=== PATIENT | female | born 1980 | race Caucasian/White ===

== ENCOUNTER 2024-07-30 06:02 | Emergency (ER) | payer BC ==
[2024-07-30] MEDS ORDERED: HYDROMORPHONE HCL 1 MG/ML INJ ONE (06:41)
[2024-07-30] MEDS ORDERED: ONDANSETRON 4 MG/2 ML VIAL ONE (06:41)
[2024-07-30] MEDS ORDERED: NA CHLORIDE 0.9% 2,000 ML ONE (06:49)
[2024-07-30 06:56] LABS: Absolute Eosinophils 0.1 K/uL (0-0.5); Absolute Lymphocytes (CBC) 1.6 K/uL (0.7-4.9); Absolute Monocytes 0.5 K/uL (0.1-1.3); Absolute Neutrophil 4.9 K/uL (1.8-8.0); Basophils % 0.2 % (0-1.3); Eosinophils % 0.8 % (0-4.4); Hematocrit 40.4 % (36.0-45.0); MCH 31.3 pg (27.0-35.0); MCHC 34.7 g/dL (32.0-36.0); MCV 90.2 fL (80-100); MPV 6.7 fL (7.6-11.3); Monocytes % 6.4 % (3.3-12.3); Neutrophils % 69.6 % (41.7-73.7); Nucleated Red Blood Cells % 0.1 % (0-0); Platelets 374 thou/uL (152-406); RBC Red Blood Cell Count 4.48 M/uL (3.86-4.86); Red Cell Distribution Width 13.1 % (12.1-15.2)
[2024-07-30 07:10] LABS: PT Prothrombin Time 12.6 SECONDS (10-13.0); PTT, Activated Partial Thromb 30.5 SECONDS (27.2-37.4); Protime INR 1.11
[2024-07-30 07:14] LABS: Albumin 4.2 g/dL (3.4-5.0); Anion Gap 8.4 mEq/L (5.0-15.0); Bilirubin Total 0.6 mg/dL (0.2-1.0); Globulin 4.2 g/dL (2.3-3.5); Potassium 3.4 mEq/L (3.5-5.1); Protein, Total 8.4 g/dL (6.4-8.2)
[2024-07-30] MEDS ORDERED: KETOROLAC 30 MG/ML INJ ONE (08:00)
--- NOTE | 2024-07-30 08:35 | RAD REPORT ---
EXAM: CT Soft Tissue Neck W/Contr INDICATION: [facility] no neck/face pain/swelling left mandible;Facial pain Bed Name: 7 TECHNIQUE: Helical CT examination of the neck with IV contrast. Sagittal and coronal reformations wer e generated. This exam was performed according to our departmental dose-optimization program, which includes automated exposure control, adjustment of the mA and/or kV according to patient size and/or use of iterative reconstruction technique. COMPARISON: None. FINDINGS: Soft tissue swelling along the left lower jaw overlying the left mandibular body. Small subperiosteal collection along the buccal cortex of the mandibular body most caudally, measuring 5 x 8 mm in CC and AP dimensions, and 4 mm in thickness, best appreciated on coronal image 26. This may relate to reza btle periapical lucency along the root of the posterior most left mandibular erupted molar, which shows adjacent osseous sclerosis, suggesting ongoing infection. Subtraction cavity of the right maxillary first premolar. Mucosal spaces: Nasopharynx, oropharynx, oral cavity, larynx and hypopharynx are normal. No suspiciou s masses. Epiglottis is normal in configuration. True vocal cords cords are normally situated. Piriform sinuses are well-aerated. Lymph Nodes: No pathologic appearing cervical lymph nodes. Salivary Glands: Unremarkable. Thyroid Gland: Normal Included Intracranial Structures: Normal Included Orbits: Normal Paranasal Sinuses: Predominantly clear Tympanomastoid Cavities: Normal Vascular Structures: Normal Osseous Structures: No acute osseous abnormality. Mild degenerative changes at C5-6 contributing to mild to moderate degrees of neural foraminal narrowing bilaterally. Included Lung Apices: Interlobular septal thickening with geographic mild groundglass opacities in th e included upper lungs, may relate to sequelae of under aeration or airway inflammatory changes. IMPRESSION: Periapical lucency with no discrete periapical collection along the root of the posterior most left m andibular erupted molar, with overlying subperiosteal collection/abscess along the buccal cortex of the body of the mandible measuring 8 mm in greatest AP dimension. Other incidental findings as above.
--- NOTE | 2024-07-30 08:57 | ER ---
Nurse's Notes [facility] Name: Ladonna Asif Age: 44 yrs Sex: Female : 1980 Arrival Date: 07/30/2024 Time: 06:02 Bed 7 Private MD: Diagnosis: dental abscess Presentation: 07/30 06:19 Chief complaint: Patient states: right sided tooth pulled 2 weeks ago. new onset pain lg3 and swelling to left jaw/;face X1 week and worsening. no relief with Tramadol, ibuprofen or Robaxin. Coronavirus screen: Client denies travel out of the [place] in the last 14 days. At this time, the client does not indicate any symptoms associated with coronavirus-19. Ebola Screen: No symptoms or risks identified at this time. Initial Sepsis Screen: Does the patient meet any 2 criteria? No. Patient's initial sepsis screen is negative. Does the patient have a suspected source of infection? No. Patient's initial sepsis screen is negative. Risk Assessment: Do you want to hurt yourself or someone else? Patient reports no desire to harm self or others. Onset of symptoms is unknown. 06:19 Method Of Arrival: Ambulatory lg3 06:19 Acuity: KRISTIN 3 lg3 Triage Assessment: 06:22 General: Appears in no apparent distress. uncomfortable, Behavior is calm, cooperative. lg3 Pain: Complains of pain in left cheek and left jaw Pain currently is 10 out of 10 on a pain scale. EENT: No deficits noted. Throat is clear. Neuro: No deficits noted. Dunn Agitation-Sedation Scale (RASS): 0 - Alert and Calm Level of Consciousness is awake, alert, obeys commands, Oriented to person, place, time, situation. Cardiovascular: No deficits noted. Denies chest pain, shortness of breath, Capillary refill < 3 seconds Clubbing of nail beds is absent JVD is absent Patient's skin is warm and dry. Respiratory: No deficits noted. Airway is patent Respiratory effort is even, unlabored, Respiratory pattern is regular, symmetrical. GI: No deficits noted. No signs and/or symptoms were reported involving the gastrointestinal system. : No signs and/or symptoms were reported regarding the genitourinary system. Derm: No deficits noted. Skin is intact, is healthy with good turgor, Skin is dry, Skin is normal, Skin temperature is warm. Musculoskeletal: Circulation, motion, and sensation intact. Range of motion: intact in all extremities, Swelling present in left cheek and left jaw. 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 - Infectious Disease History:: Denies. - Social history:: Smoking status: Reported history of juuling and/or vaping. Patient uses street drugs, marijuana. Screenin:25 [facility] ED Fall Risk Assessment (Adult) History of falling in the last 3 months, lg3 including since admission No falls in past 3 months (0 pts) Confusion or Disorientation No (0 pts) Intoxicated or Sedated No (0 pts) Impaired Gait Yes (1 pt) Mobility Assist Device Used Yes (1 pt) Altered Elimination No (0 pt) Score/Fall Risk Level 0 - 2 = Low Risk Oriented to surroundings, Maintained a safe environment, Educated pt \T\ family on fall prevention, incl call for assistance when getting out of bed, Assessed \T\ reinforced patient's understanding of fall precautions. Abuse screen: Denies threats or abuse. Denies injuries from another. Nutritional screening: No deficits noted. Tuberculosis screening: No symptoms or risk factors identified. Assessment: 06:25 General: see triage assessment. lg3 07:25 General: Appears in no apparent distress. Behavior is calm, cooperative, appropriate ap3 for age. Pain: Complains of pain in left jaw Pain currently is 7 out of 10 on a pain scale. Neuro: Level of Consciousness is awake, alert, obeys commands, Oriented to person, place, time, situation, Appropriate for age. Cardiovascular: Patient's skin is warm and dry. Respiratory: Airway is patent Respiratory effort is even, unlabored, Respiratory pattern is regular, symmetrical. Vital Signs: 06:19 BP 163 / 93; Pulse 131; Resp 15 S; Temp 97.6(TE); Pulse Ox 100% on R/A; Weight 92.99 kg lg3 (R); Height 5 ft. 7 in. ; 07:35 BP 116 / 80; Pulse 67; Pulse Ox 97% ; ap3 08:45 BP 118 / 77; Pulse 67; Resp 18; Pulse Ox 97% on R/A; ld1 06:19 Body Mass Index 32.11 (92.99 kg, 170.18 cm) lg3 ED Course: 06:07 Patient arrived in ED. jj6 06:09 Dorothy Fowler MD is Attending Physician. sp3 06:22 Triage completed. lg3 06:22 Arm band placed on right wrist. lg3 06:25 Patient has correct armband on for positive identification. Placed in gown. Bed in low lg3 position. Call light in reach. Side rails up X 1. Client placed on continuous cardiac and pulse oximetry monitoring. NIBP monitoring applied. special procedure technologist on. Door closed. Noise minimized. Warm blanket given. Pillow given. Family accompanied patient. 06:25 Oxygen administration via nasal cannula. lg3 06:33 DIONISIO REDDY RN is Primary Nurse. dd2 06:40 EKG done, by ED staff, reviewed by Dorothy Fowler MD. oe 06:40 No provider procedures requiring assistance completed. Initial lab(s) drawn, by me, dd2 sent to lab. First set of blood cultures drawn by me. 06:57 Inserted saline lock: 20 gauge in right antecubital area, using aseptic technique. dd2 Blood collected. Flushed with 10 mL NS. 07:12 Attending Physician role handed off by Dorothy Fowler MD jr11 07:12 Costa Pickering MD is Attending Physician. jr11 07:21 Primary Nurse role handed off by DIONISIO REDDY RN eb 07:25 Arleth Leal, ANALY is Primary Nurse. ap3 07:34 CT Soft Tissue Neck W/contr In Process Unspecified. EDMS 09:20 Provided Education on: discharge instructions. ap3 09:20 IV discontinued, intact, bleeding controlled, No redness/swelling at site. Pressure ap3 dressing applied. Administered Medications: 06:47 Drug: HYDROmorphone IVP 1 mg IVP once Route: IVP; Site: right antecubital; bm8 07:26 Follow up: Response: No adverse reaction; Pain is decreased ap3 06:47 Drug: Ondansetron IVP 4 mg IVP once; over 2 minutes Route: IVP; Site: right antecubital;bm8 07:27 Follow up: Response: No adverse reaction ap3 06:53 Drug: NS 0.9% IV (30 ml/kg) 30 ml/kg IV at bolus once; Sepsis Protocol; to be given as bm8 a bolus over 90 minutes Route: IV; Rate: bolus; Site: right antecubital; 09:20 Follow up: IV Status: Completed infusion ap3 08:10 Drug: Ketorolac IVP 15 mg IVP once Route: IVP; Site: right antecubital; ld1 09:04 Follow up: Response: No adverse reaction ap3 09:10 Drug: Clindamycin PO 300 mg PO once Route: PO; ap3 09:20 Follow up: Response: No adverse reaction ap3 Medication: 09:20 VIS not applicable for this client. ap3 Outcome: 08:57 Discharge ordered by . jr11 09:20 Discharged to home ambulatory, with family, ap3 09:20 Condition: good 09:20 Discharge instructions given to patient, family, Instructed on discharge instructions, follow up and referral plans. medication usage, Demonstrated understanding of instructions, follow-up care, medications, Prescriptions given X 3, 09:20 Patient left the ED. ap3 Signatures: Dispatcher [employer] EDMS James Acosta Amanda RN RN ap3 Dalila Lugo Lacie RN RN lg3 Brittanie Greene RN RN ld1 Dorothy Fowler MD MD sp3 Susana Ha Jose, MD MD jr11 Juarez Ding RN RN bm8 DIONISIO REDDY RN RN dd2
--- NOTE | 2024-07-30 08:57 | EDPHYS ---
Physician Documentation [facility] Name: Ladonna Asif Age: 44 yrs Sex: Female : 1980 Arrival Date: 07/30/2024 Time: 06:02 Bed 7 Private MD: ED Physician Costa Pickering HPI: 07/30 06:43 This 44 yrs old Female presents to ER via Ambulatory with complaints of Facial Swelling.sp3 06:43 44-year-old female with history of generalized tremors and unknown neurological sp3 diagnosis currently improving, recent diagnosis of trigeminal neuralgia and recent dental procedure on the right side of her mouth in the mandible now presents to the ED with chief complaint left-sided mandibular swelling, ongoing neck pain and stiffness, and TMJ pain. Patient was diagnosed by her dentist with trigeminal neuralgia and placed on tramadol and PCP added Robaxin. Patient states that her left side of her jaw is now swollen and is worse when she moves. She denies any fever or dental pain on the left side. No difficulty swallowing. ROS otherwise negative.. 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 - Infectious Disease History:: Denies. - Social history:: Smoking status: Reported history of juuling and/or vaping. Patient uses street drugs, marijuana. ROS: 06:45 Constitutional: Negative for fever, chills, and weight loss, Eyes: Negative for injury, sp3 pain, redness, and discharge, ENT: Negative for injury, pain, and discharge, Cardiovascular: Negative for chest pain, palpitations, and edema, Respiratory: Negative for shortness of breath, cough, wheezing, and pleuritic chest pain, Abdomen/GI: Negative for abdominal pain, nausea, vomiting, diarrhea, and constipation, Back: Negative for injury and pain, MS/Extremity: Negative for injury and deformity, Skin: Negative for injury, rash, and discoloration, Neuro: Negative for headache, weakness, numbness, tingling, and seizure, Psych: Negative for depression, anxiety, suicide ideation, homicidal ideation, and hallucinations, Allergy/Immunology: Negative for hives, rash, and allergies, Endocrine: Negative for neck swelling, polydipsia, polyuria, polyphagia, and marked weight changes, 06:45 All other systems are negative, Exam: 06:46 Constitutional: This is a well developed, well nourished patient who is awake, alert, sp3 and in no acute distress. Eyes: Pupils equal round and reactive to light, extra-ocular motions intact. Lids and lashes normal. Conjunctiva and sclera are non-icteric and not injected. Cornea within normal limits. Periorbital areas with no swelling, redness, or edema. ENT: Nares patent. No nasal discharge, no septal abnormalities noted. External auditory canals are clear. Oropharynx with no redness, swelling, or masses, exudates, or evidence of obstruction, uvula midline. Mucous membranes moist. Chest/axilla: Normal chest wall appearance and motion. Nontender with no deformity. No lesions are appreciated. Respiratory: Lungs have equal breath sounds bilaterally, clear to auscultation and percussion. No rales, rhonchi or wheezes noted. No increased work of breathing, no retractions or nasal flaring. Abdomen/GI: Soft, non-tender, with normal bowel sounds. No distension or tympany. No guarding or rebound. No evidence of tenderness throughout. Back: No spinal tenderness. No costovertebral tenderness. Full range of motion. Skin: Warm, dry with normal turgor. Normal color with no rashes, no lesions, and no evidence of cellulitis. MS/ Extremity: Pulses equal, no cyanosis. Neurovascular intact. Full, normal range of motion. Neuro: Awake and alert, GCS 15, oriented to person, place, time, and situation. Cranial nerves II-XII grossly intact. Motor strength 5/5 in all extremities. Sensory grossly intact. Cerebellar exam normal. Normal gait. Psych: Awake, alert, with orientation to person, place and time. Behavior, mood, and affect are within normal limits. 06:46 Head/face: Swelling noted along the mandibular jawline on the left side. No lymphadenopathy noted. Patient also tender at the TMJ joint. Mildly tender along parotid gland. ENT exam negative. No peritonsillar swelling, uvular shift or other abnormality. Heart rate noted at 131 tachycardia. Afebrile.. 06:46 Cardiovascular: Rate: tachycardic, 06:59 ECG was reviewed by the Attending Physician. EKG demonstrates normal sinus rhythm at 77 sp3 bpm with normal intervals, normal QRS, normal axis, normal ST/T-segments without evidence of acute ischemia. Vital Signs: 06:19 BP 163 / 93; Pulse 131; Resp 15 S; Temp 97.6(TE); Pulse Ox 100% on R/A; Weight 92.99 kg lg3 (R); Height 5 ft. 7 in. ; 07:35 BP 116 / 80; Pulse 67; Pulse Ox 97% ; ap3 08:45 BP 118 / 77; Pulse 67; Resp 18; Pulse Ox 97% on R/A; ld1 06:19 Body Mass Index 32.11 (92.99 kg, 170.18 cm) lg3 MDM: 06:09 Medical Screening Exam initiated sp3 06:48 Data reviewed: vital signs, nurses notes, lab test result(s), radiologic studies. ED sp3 course: 44-year-old female with PMH above now with left-sided facial swelling and tachycardia as well as neck and facial pain. Differential diagnosis includes dental infection, parotid gland sialolithiasis versus infection, TMJ pain, trigeminal neuralgia, SCM muscle strain, lymphadenopathy of the neck, among others. Workup will include general labs and CT scan soft tissue anterior neck which will extend into the face. IV fluids also ordered as well as cultures. Patient will be signed out to daytime physician for reevaluation and final disposition.. 08:56 Differential diagnosis: CT to my read, small fluid collection. Spoke to the patient, jrAnayeli she would like to stay local rather than transfer, consider transfer however she wants to go outpatient here. Will prescribe anabiotic warm compresses, strict return precautions. 07/30 06:33 Order name: Blood Culture Adult (2) sp3 07/30 06:33 Order name: CBC with Diff; Complete Time: 08:05 sp3 07/30 06:33 Order name: CMP; Complete Time: 08:05 sp3 07/30 06:33 Order name: Lactate w/ 2H reflex if indic.; Complete Time: 08:05 sp3 07/30 06:33 Order name: Protime (+inr); Complete Time: 08:05 sp3 07/30 06:33 Order name: Ptt, Activated; Complete Time: 08:05 sp3 07/30 06:33 Order name: CT Soft Tissue Neck W/contr; Complete Time: 08:44 sp3 07/30 06:33 Order name: Cardiac monitoring; Complete Time: 06:47 sp3 07/30 06:33 Order name: EKG - Nurse/Tech; Complete Time: 06:54 sp3 07/30 06:33 Order name: IV Saline Lock - Large Bore; Complete Time: 06:47 sp3 07/30 06:33 Order name: Labs collected and sent; Complete Time: 06:54 sp3 07/30 06:33 Order name: O2 Per Protocol; Complete Time: 06:54 sp3 07/30 06:33 Order name: O2 Sat Monitoring; Complete Time: 06:54 sp3 07/30 06:33 Order name: Vital Signs; Complete Time: 06:54 sp3 07/30 06:34 Order name: NPO; Complete Time: 06:47 sp3 Administered Medications: 06:47 Drug: HYDROmorphone IVP 1 mg IVP once Route: IVP; Site: right antecubital; bm8 07:26 Follow up: Response: No adverse reaction; Pain is decreased ap3 06:47 Drug: Ondansetron IVP 4 mg IVP once; over 2 minutes Route: IVP; Site: right antecubital;bm8 07:27 Follow up: Response: No adverse reaction ap3 06:53 Drug: NS 0.9% IV (30 ml/kg) 30 ml/kg IV at bolus once; Sepsis Protocol; to be given as bm8 a bolus over 90 minutes Route: IV; Rate: bolus; Site: right antecubital; 09:20 Follow up: IV Status: Completed infusion ap3 08:10 Drug: Ketorolac IVP 15 mg IVP once Route: IVP; Site: right antecubital; ld1 09:04 Follow up: Response: No adverse reaction ap3 09:10 Drug: Clindamycin PO 300 mg PO once Route: PO; ap3 09:20 Follow up: Response: No adverse reaction ap3 Disposition Summary: 07/30/24 08:57 Discharge Ordered Notes: Please call [facility] today Location: Home jr11 Condition: Stable jr11 Diagnosis - dental abscess jr11 Discharge Instructions: - Discharge Summary Sheet jr11 - Dental Abscess jr11 Forms: - Medication Reconciliation Form jr11 - Antibiotic Education jr11 - Prescription Opioid Use jr11 - Patient Portal Instructions jr11 - Leadership Thank You Letter jr11 Prescriptions: - Clindamycin HCl 150 mg Oral capsule - take 3 capsule ORAL route every 8 hours for 10 days; 90 capsule; Refills: 0, jr11 Product Selection Permitted - Ibuprofen 600 mg Oral Tablet - take 1 tablet ORAL route every 6 hours As needed take with food; 30 tablet; jr11 Refills: 0, Product Selection Permitted - Tylenol-Codeine #3 300mg-30mg Oral tablet - take 1 tablet ORAL route every 4 hours As needed; 16 tablet; Refills: 0, jr11 Product Selection Permitted Signatures: Dispatcher [employer] EDMS Arleth Leal, RN RN ap3 Hortensia Stanton, RN RN lg3 Brittanie Greene RN RN ld1 Dorothy Fowler MD MD sp3 Costa Pickering MD MD jr11 Juarez Ding RN RN bm8 Corrections: (The following items were deleted from the chart) 06:34 06:34 BLOOD CULTURE*+BA.LAB.BRZ ordered. EDMS EDMS 06:34 06:34 CBC+H.LAB.BRZ ordered. EDMS EDMS 06:34 06:34 COMPREHENSIVE METABOLIC PANEL+C.LAB.BRZ ordered. EDMS EDMS 06:34 06:34 LACTATE+C.LAB.BRZ ordered. EDMS EDMS 06:34 06:34 PROTIME (+INR)+COAG.LAB.BRZ ordered. EDMS EDMS 06:34 06:34 PTT, ACTIVATED+COAG.LAB.BRZ ordered. EDMS EDMS 06:34 06:34 Soft Tissue Neck W/Contr+CT.RAD.BRZ ordered. EDMS EDMS
[2024-07-30 09:40] VITALS: TEMP 97.6
[2024-07-30 09:45] VITALS: O2SAT 97
[2024-07-30 09:49] VITALS: BP 118/77
--- NOTE | 2024-08-02 10:58 | EKG ---
Test Date: 2024-07-30 Test Time: 06:55:29 [employer] Remittance Clerk: MANUELA MEASUREMENT RESULTS: Intervals: Rate: 77 IL: 136 QRSD: 80 QT: 382 QTc: 432 [place]: P: 47 IL: 136 QRS: 83 T: 48 INTERPRETIVE STATEMENTS: Normal sinus rhythm Normal ECG No previous ECG available for comparison Electronically Signed On 08-02-24 10:51:12 CDT by Zach Pinedo
== END 2024-07-30 09:20 | disposition home or self-care (01) ==
LOC: ER 06:02
DX: K04.7 Periapical abscess without sinus (principal)
CPT/HCPCS: 96365; 93005; 87040 ×2; 85025; 36415; 85610; 83605; 85730; 80053; 70491; 96375; 99285; 96366; Q9967; J1171; J2405; J7030

== ENCOUNTER 2024-07-31 16:55 | Emergency (ER) | payer BC ==
[2024-07-31] MEDS ORDERED: KETOROLAC 30 MG/ML INJ ONE (18:00)
[2024-07-31] MEDS ORDERED: NA CHLORIDE 0.9% 1,000 ML ONE (18:00)
[2024-07-31] MEDS ORDERED: AMPICILLIN/SULBACTAM 3GM/VIAL ONE (18:00)
[2024-07-31] MEDS ORDERED: NA CHLORIDE 0.9% 100 ML ONE (18:00)
[2024-07-31] MEDS ORDERED: HYDROMORPHONE HCL 1 MG/ML INJ ONE (18:00)
--- NOTE | 2024-07-31 19:04 | ER ---
Nurse's Notes [facility] Name: Ladonna Asif Age: 44 yrs Sex: Female : 1980 Arrival Date: 07/31/2024 Time: 16:55 Bed 20 Private MD: Diagnosis: Dental caries, unspecified Presentation: 07/31 17:06 Chief complaint: Patient states: left sided facial swelling onset 1 week ago. pt cm10 currently taking antibiotics but not getting better. Coronavirus screen: Client denies travel out of the [place] in the last 14 days. Ebola Screen: Patient denies travel to an Ebola-affected area in the 21 days before illness onset. Initial Sepsis Screen: Does the patient meet any 2 criteria? HR > 90 bpm. Does the patient have a suspected source of infection? No. Patient's initial sepsis screen is negative. Risk Assessment: Do you want to hurt yourself or someone else? Patient reports no desire to harm self or others. Onset of symptoms was July 31, 2024. 17:06 Method Of Arrival: Ambulatory cm10 17:06 Acuity: KRISTIN 3 cm10 Triage Assessment: 17:09 General: Appears uncomfortable, Behavior is calm, cooperative. Neuro: No deficits cm10 noted. Level of Consciousness is awake, alert, obeys commands, Oriented to person, place, time, situation, Appropriate for age. Respiratory: Airway is patent Respiratory effort is even, unlabored, Respiratory pattern is regular, symmetrical. 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 - Infectious Disease History:: Denies. - Social history:: Smoking status: unknown. Screenin:11 [facility] ED Fall Risk Assessment (Adult) History of falling in the last 3 months, kc6 including since admission No falls in past 3 months (0 pts) Confusion or Disorientation No (0 pts) Intoxicated or Sedated No (0 pts) Impaired Gait No (0 pts) Mobility Assist Device Used No (0 pt) Altered Elimination No (0 pt) Score/Fall Risk Level 0 - 2 = Low Risk Oriented to surroundings, Maintained a safe environment. Abuse screen: Denies threats or abuse. Denies injuries from another. Nutritional screening: No deficits noted. Tuberculosis screening: No symptoms or risk factors identified. Assessment: 18:11 General: Appears in no apparent distress. uncomfortable, well groomed, well developed, kc6 Behavior is cooperative, appropriate for age, crying. Pain: Complains of pain in mouth and left submandibular area Pain currently is 9 out of 10 on a pain scale. Quality of pain is described as aching, dull, throbbing. Neuro: Level of Consciousness is awake, alert, obeys commands, Oriented to person, place, time, situation, Appropriate for age. Cardiovascular: Capillary refill < 3 seconds. Respiratory: Airway is patent Trachea midline Respiratory effort is even, unlabored, Respiratory pattern is regular, symmetrical. GI: Reports intolerance of fluids, intolerance of food, Patient currently denies abdominal pain, diarrhea, nausea, vomiting. : No signs and/or symptoms were reported regarding the genitourinary system. EENT: Oral mucosa is moist. Poor dentition noted. Derm: No signs and/or symptoms reported regarding the dermatologic system. Skin is intact, is healthy with good turgor, Skin is pink, warm \T\ dry. Musculoskeletal: Circulation, motion, and sensation intact. Range of motion: intact in all extremities, Swelling present in mouth and left submandibular area. 18:42 Reassessment: Patient appears in no apparent distress at this time. No changes from kc6 previously documented assessment. Patient and/or family updated on plan of care and expected duration. Pain level reassessed. Patient is alert, oriented x 3, equal unlabored respirations, skin warm/dry/pink. Patient states feeling better. Patient states symptoms have improved. 19:18 Reassessment: Patient appears in no apparent distress at this time. Patient and/or bm8 family updated on plan of care and expected duration. Pain level reassessed. Patient is alert, oriented x 3, equal unlabored respirations, skin warm/dry/pink. Patient states feeling better. Patient states symptoms have improved. Vital Signs: 17:06 BP 159 / 103; Pulse 124; Resp 20; Temp 98.8; Pulse Ox 98% ; Weight 92.99 kg; Height 5 cm10 ft. 7 in. ; 18:10 BP 141 / 91; Pulse 79; Resp 18 S; Pulse Ox 95% on R/A; Pain 8/10; kc6 18:42 BP 129 / 89; Pulse 89; Resp 18 S; Pulse Ox 97% on R/A; Pain 4/10; kc6 19:18 BP 140 / 89; Pulse 76; Resp 18; Temp 98.8; Pulse Ox 98% ; Pain 4/10; bm8 17:06 Body Mass Index 32.11 (92.99 kg, 170.18 cm) cm10 18:10 Pain Scale: Adult kc6 18:42 Pain Scale: Adult kc6 19:18 Pain Scale: Adult bm8 Malena Coma Score: 19:18 Eye Response: spontaneous(4). Motor Response: obeys commands(6). Verbal Response: bm8 oriented(5). Total: 15. ED Course: 16:58 Patient arrived in ED. im 16:58 Yohan Loredo F[facility]-C [facility]. [facility]5 16:58 Juan Donnelly MD is Attending Physician. dr5 17:07 Triage completed. cm10 17:07 Arm band placed on left wrist. Patient placed in waiting room. cm10 17:50 Allison Jose RN is Primary Nurse. kc6 18:10 Patient has correct armband on for positive identification. Bed in low position. Call kc6 light in reach. Side rails up X 1. Adult w/ patient. Pulse ox on. NIBP on. Door closed. Noise minimized. Lights dimmed. Pillow given. Verbal reassurance given. 18:10 Inserted saline lock: 20 gauge in right antecubital area, using aseptic technique. kc6 Flushed with 10 mL NS. Patient maintains SpO2 saturation greater than 95% on room air. 18:56 Report given to ANALY Pizarro. kc6 19:18 Provided Education on: post er care. bm8 19:18 No provider procedures requiring assistance completed. IV discontinued, intact, bm8 bleeding controlled, No redness/swelling at site. Pressure dressing applied. Administered Medications: 18:09 Drug: NS 0.9% IV 1000 ml IV at 1000 ml once; to be given as a bolus over 60 minutes kc6 Route: IV; Rate: 1000 ml; Site: right antecubital; 19:21 Follow up: Response: No adverse reaction; IV Status: Completed infusion bm8 18:09 Drug: Ketorolac IVP 15 mg IVP once Route: IVP; Site: right antecubital; kc6 18:42 Follow up: Response: No adverse reaction; Pain is decreased kc6 18:10 Drug: HYDROmorphone IVP 1 mg IVP once Route: IVP; Site: right antecubital; kc6 18:42 Follow up: Response: No adverse reaction; Pain is decreased; RASS: Alert and Calm (0) kc6 18:10 Drug: Ampicillin-Sulbactam Sodium IVPB 3 grams IVPB once over 30 mins; (mix in 100 mL kc6 NS) Route: IVPB; Infused Over: 30 mins; Site: right antecubital; 18:41 Follow up: Response: No adverse reaction; IV Status: Completed infusion; IV Intake: kc6 100ml Medication: 19:18 VIS not applicable for this client. bm8 Intake: 18:41 IV: 100ml; Total: 100ml. kc6 Outcome: 19:04 Discharge ordered by . dr5 19:18 Discharged to home ambulatory, with family, bm8 19:18 Condition: stable 19:18 Discharge instructions given to patient, family, Instructed on discharge instructions, follow up and referral plans. Demonstrated understanding of instructions, follow-up care, medications, Prescriptions given X 3, 19:20 Patient left the ED. bm8 Signatures: Allison Jose RN RN kc6 Ashli Summers Clarissa RN RN cm10 Juarez Ding RN RN bm8 Yohan Loredo, INSPECTOR PLUG SEAM-C INSPECTOR PLUG SEAM-Cdr5
--- NOTE | 2024-07-31 19:04 | EDPHYS ---
Physician Documentation [facility] Name: Ladonna Asif Age: 44 yrs Sex: Female : 1980 Arrival Date: 07/31/2024 Time: 16:55 Bed 20 Private MD: ED Physician Juan Donnelly HPI: 07/31 17:22 This 44 yrs old Female presents to ER via Ambulatory with complaints of dr5 Toothache, Facial Swelling. 17:22 The patient presents with broken tooth/teeth, redness, swelling. Patient is a dr5 44-year-old female with history of tremors coming in with continued left facial pain and swelling despite taking multiple doses of clindamycin since yesterday. Patient reports that she was unable to get to her dentist and just cannot tolerate the pain. Patient received blood work as well as CT scan yesterday with first dose of clindamycin given yesterday as well. . DIRECTOR OF RESIDENTIAL SERVICES: 19:20 Verified bm8 Historical: - Allergies: 17:05 Betadine; cm10 - PMHx: 17:05 generalized tremors; cm10 - Immunization history:: Adult Immunizations up to date. - Infectious Disease History:: Denies. - Social history:: Smoking status: unknown. ROS: 17:22 Constitutional: as per hpi dr5 Exam: 17:22 Constitutional: This is a well developed, well nourished patient who is awake, alert, dr5 and in no acute distress. Head/Face: Normocephalic, atraumatic. Eyes: Pupils equal round and reactive to light, extra-ocular motions intact. Lids and lashes normal. Conjunctiva and sclera are non-icteric and not injected. Cornea within normal limits. Periorbital areas with no swelling, redness, or edema. Neck: Trachea midline, no thyromegaly or masses palpated, and no cervical lymphadenopathy. Supple, full range of motion without nuchal rigidity, or vertebral point tenderness. No Meningismus. Chest/axilla: Normal chest wall appearance and motion. Nontender with no deformity. No lesions are appreciated. Cardiovascular: Regular rate and rhythm with a normal S1 and S2. Normal PMI, no JVD. No pulse deficits. Respiratory: Lungs have equal breath sounds bilaterally, clear to auscultation. No rales, rhonchi or wheezes noted. No increased work of breathing, no retractions or nasal flaring. Back: No spinal tenderness. No costovertebral tenderness. Full range of motion. Skin: Warm, dry with normal turgor. Normal color with no rashes, no lesions, and no evidence of cellulitis. Neuro: Awake and alert, GCS 15, oriented to person, place, time, and situation. Cranial nerves II-XII grossly intact. Motor strength 5/5 in all extremities. Sensory grossly intact. Cerebellar exam normal. Normal gait. 17:22 ENT: Mouth: Patient is handling secretions without drooling. Patient speaking in full sentences. Mild left facial swelling noted with tenderness to palpation., Vital Signs: 17:06 BP 159 / 103; Pulse 124; Resp 20; Temp 98.8; Pulse Ox 98% ; Weight 92.99 kg; Height 5 cm10 ft. 7 in. ; 18:10 BP 141 / 91; Pulse 79; Resp 18 S; Pulse Ox 95% on R/A; Pain 8/10; kc6 18:42 BP 129 / 89; Pulse 89; Resp 18 S; Pulse Ox 97% on R/A; Pain 4/10; kc6 19:18 BP 140 / 89; Pulse 76; Resp 18; Temp 98.8; Pulse Ox 98% ; Pain 4/10; bm8 17:06 Body Mass Index 32.11 (92.99 kg, 170.18 cm) cm10 18:10 Pain Scale: Adult kc6 18:42 Pain Scale: Adult kc6 19:18 Pain Scale: Adult bm8 Malena Coma Score: 19:18 Eye Response: spontaneous(4). Motor Response: obeys commands(6). Verbal Response: bm8 oriented(5). Total: 15. MDM: 17:24 Medical Screening Exam initiated dr5 19:46 Differential diagnosis: dental caries, dental abscess, pericoronitis. Data reviewed: dr5 vital signs, nurses notes. I considered the following discharge prescriptions or medication management in the emergency department Medications were administered in the Emergency Department. See MAR. Care significantly affected by the following chronic conditions: Tremors. Care significantly affected by the following Social Determinants of Health: Poor access to healthcare and/or lack of insurance, Poor access to transportation, Problems related to employment. Counseling: I had a detailed discussion with the patient and/or guardian regarding the historical points, exam findings, and any diagnostic results supporting the discharge/admit diagnosis, the presence of at least one elevated blood pressure reading (>120/80) during this emergency department visit, to return to the emergency department if symptoms worsen or persist or if there are any questions or concerns that arise at home. Medication response: Dilaudid. Response to treatment: the patient's symptoms have markedly improved after treatment. Admission orders: after a detailed discussion of the patient's condition and case, the admit orders are written by me. ED course: First dose of Unasyn given in ER. Will give patient Augmentin to add to clindamycin regimen. Will have patient follow-up with dentist on Friday. Will refill medications to try and help pain. All questions answered. Patient is feeling much better.. Administered Medications: 18:09 Drug: NS 0.9% IV 1000 ml IV at 1000 ml once; to be given as a bolus over 60 minutes kc6 Route: IV; Rate: 1000 ml; Site: right antecubital; 19:21 Follow up: Response: No adverse reaction; IV Status: Completed infusion bm8 18:09 Drug: Ketorolac IVP 15 mg IVP once Route: IVP; Site: right antecubital; kc6 18:42 Follow up: Response: No adverse reaction; Pain is decreased kc6 18:10 Drug: HYDROmorphone IVP 1 mg IVP once Route: IVP; Site: right antecubital; kc6 18:42 Follow up: Response: No adverse reaction; Pain is decreased; RASS: Alert and Calm (0) kc6 18:10 Drug: Ampicillin-Sulbactam Sodium IVPB 3 grams IVPB once over 30 mins; (mix in 100 mL kc6 NS) Route: IVPB; Infused Over: 30 mins; Site: right antecubital; 18:41 Follow up: Response: No adverse reaction; IV Status: Completed infusion; IV Intake: kc6 100ml Disposition: 20:30 Co-signature as Attending Physician, Juan Donnelly MD I reviewed the patient's care rt provided by the Advanced Practice Provider and agree with the diagnosis and treatment plan. Disposition Summary: 07/31/24 19:04 Discharge Ordered Notes: Location: Home dr5 Condition: Stable dr5 Diagnosis - Dental caries, unspecified dr5 Followup: dr5 - With: Emergency Department - When: As needed - Reason: Worsening of condition Followup: dr5 - With: Private Physician - When: 1 - 2 days - Reason: Recheck today's complaints, Continuance of care, Re-evaluation by your physician Discharge Instructions: - Discharge Summary Sheet dr5 - Dental Abscess dr5 - Dental Pain dr5 - Dental Abscess, [id number] dr5 Forms: - Medication Reconciliation Form dr5 - Antibiotic Education dr5 - Prescription Opioid Use dr5 - Patient Portal Instructions dr5 - Leadership Thank You Letter dr5 Prescriptions: - Augmentin 875-125 mg Oral Tablet - take 1 tablet ORAL route every 12 hours for 10 days; 20 tablet; Refills: 0, dr5 Product Selection Permitted - Tramadol 50 mg Oral tablet - take 1 tablet ORAL route every 8 hours as needed; 20 tablet; Refills: 0, dr5 Product Selection Permitted - Tylenol-Codeine #3 300mg-30mg Oral tablet - take 1 tablet ORAL route every 4 hours As needed; 16 tablet; Refills: 0, dr5 Product Selection Permitted Signatures: Allison Jose RN RN kc6 Juan Donnelly MD MD rt Rosi Pagan RN RN cm10 Yohan Loredo, FWS FACULTY ASSISTANT-C FWS FACULTY ASSISTANT-Cdr5 Juarez Ding RN bm8
[2024-07-31 19:47] VITALS: TEMP 98.8
[2024-07-31 19:53] VITALS: BP 140/89; O2SAT 98
== END 2024-07-31 19:20 | disposition home or self-care (01) ==
LOC: ER 16:55
DX: K02.9 Dental caries, unspecified (principal)
CPT/HCPCS: 96365; 96361; 96375; 99284; J1171; J0295; J7030

== ENCOUNTER 2024-08-01 08:48 | Emergency (ER) | payer BC ==
[2024-08-01] MEDS ORDERED: ONDANSETRON 4 MG/2 ML VIAL ONE (09:05)
[2024-08-01] MEDS ORDERED: MORPHINE 4 MG/ML SYR ONE ×2 (09:05→10:05)
[2024-08-01 09:17] LABS: Absolute Eosinophils 0.1 K/uL (0-0.5); Absolute Lymphocytes (CBC) 1.3 K/uL (0.7-4.9); Absolute Monocytes 0.5 K/uL (0.1-1.3); Absolute Neutrophil 5.8 K/uL (1.8-8.0); Basophils % 0.2 % (0-1.3); Hematocrit 33.5 % (36.0-45.0); Hemoglobin 11.7 g/dL (12.0-15.0); Lymphocytes % 16.6 % (15.3-44.8); MCH 31.4 pg (27.0-35.0); MCHC 35.1 g/dL (32.0-36.0); MCV 89.5 fL (80-100); MPV 6.3 fL (7.6-11.3); Monocytes % 6.2 % (3.3-12.3); Platelets 321 thou/uL (152-406); RBC Red Blood Cell Count 3.74 M/uL (3.86-4.86); Red Cell Distribution Width 12.9 % (12.1-15.2)
[2024-08-01 09:30] LABS: Anion Gap 5.6 mEq/L (5.0-15.0); Potassium 3.6 mEq/L (3.5-5.1)
--- NOTE | 2024-08-01 10:15 | RAD REPORT ---
EXAM: CT Soft Tissue Neck W/Contr INDICATION: left mandibular swelling Bed Name: 14 TECHNIQUE: Helical CT examination of the neck with IV contrast. Sagittal and coronal reformations wer e generated. This exam was performed according to our departmental dose-optimization program, which includes automated exposure control, adjustment of the mA and/or kV according to patient size and/or use of iterative reconstruction technique. COMPARISON: None. FINDINGS: Stable swelling and overlying fat stranding along the left lower jaw, adjacent to the left mandibular body buccal cortex, with stable subperiosteal fluid collection now measuring 4 mm in thickness and 8 mm in greatest AP dimension. Periapical lucency along the root of the posterior most interrupted le ft mandibular molar again seen. Mucosal spaces: Nasopharynx, oropharynx, oral cavity, larynx and hypopharynx are normal. There is how ever new focal swelling and overlying fat stranding along the left strap muscles at the level of the thyroid cartilage. No appreciable fluid collections. No suspicious masses. Epiglottis is normal i n configuration. True vocal cords cords are normally situated. Piriform sinuses are well-aerated. Lymph Nodes: Mildly prominent lymph nodes at level 2A and level 1B on the left, stable to mildly prog ressive. Salivary Glands: Unremarkable. Thyroid Gland: Normal Included Intracranial Structures: Normal Included Orbits: Normal Paranasal Sinuses: Predominantly clear Tympanomastoid Cavities: Normal Vascular Structures: Normal Osseous Structures: No acute osseous abnormality. Included Lung Apices: Normal IMPRESSION: Stable left mandibular periodontal disease with overlying small subperiosteal fluid collection/absces s. New focal swelling overlying fat stranding along the left strap muscles at the level of the thyroid c artilage, may relate to evolving deep space infection although appreciable phlegmon or abscess formation.
[2024-08-01] MEDS ORDERED: NA CHLORIDE 0.9% 250 ML ONE (10:28)
[2024-08-01] MEDS ORDERED: FENTANYL CITR 100 MCG/2 ML ONE ×2 (10:28→11:37)
[2024-08-01] MEDS ORDERED: VANCOMYCIN 1 GM/VIAL ONE (10:28)
[2024-08-01] MEDS ORDERED: PIPERACIL/TAZO 3.375 GM VIAL IV ONE (10:29)
[2024-08-01] MEDS ORDERED: NA CHLORIDE 0.9% 100 ML ONE (10:29)
--- NOTE | 2024-08-01 10:31 | ER ---
Nurse's Notes [facility] Name: Ladonna Asif Age: 44 yrs Sex: Female : 1980 Arrival Date: 08/01/2024 Time: 08:48 Bed 14 Private MD: Diagnosis: Cellulitis of face;Cellulitis of neck;Periapical abscess without sinus Presentation: 08/01 08:53 Chief complaint: Patient states: dx dental abscess and reports increased swelling to aa5 left jaw and increased pain and headache. 08:53 Coronavirus screen: At this time, the client does not indicate any symptoms associated aa5 with coronavirus-19. Ebola Screen: Patient denies travel to an Ebola-affected area in the 21 days before illness onset. Initial Sepsis Screen: Does the patient meet any 2 criteria? HR > 90 bpm. Does the patient have a suspected source of infection?. Risk Assessment: Do you want to hurt yourself or someone else? Patient reports no desire to harm self or others. Onset of symptoms was July 2024. 08:53 Acuity: KRISTIN 3 aa5 08:53 Method Of Arrival: Ambulatory aa5 Historical: - Allergies: 09:00 Betadine; aa5 - PMHx: 09:00 generalized tremors; aa5 - Family history:: not pertinent. - Hospitalizations: : No recent hospitalization is reported. Screenin:00 [facility] ED Fall Risk Assessment (Adult) History of falling in the last 3 months, jl7 including since admission No falls in past 3 months (0 pts) Confusion or Disorientation No (0 pts) Intoxicated or Sedated No (0 pts) Impaired Gait No (0 pts) Mobility Assist Device Used No (0 pt) Altered Elimination No (0 pt) Score/Fall Risk Level 0 - 2 = Low Risk Oriented to surroundings, Maintained a safe environment. Abuse screen: Denies threats or abuse. Denies injuries from another. Nutritional screening: No deficits noted. Tuberculosis screening: No symptoms or risk factors identified. Assessment: 09:00 General: Appears in no apparent distress. uncomfortable, Behavior is calm, cooperative, jl7 appropriate for age. Pain: Complains of pain in mouth Pain currently is 10 out of 10 on a pain scale. Neuro: Level of Consciousness is awake, alert, obeys commands, Oriented to person, place, time, situation. Cardiovascular: Patient's skin is warm and dry. Respiratory: Airway is patent Respiratory effort is even, unlabored, Respiratory pattern is regular, symmetrical. EENT: swelling and redness noted to left side of face. Derm: Skin is pink, warm \T\ dry. Vital Signs: 08:53 BP 150 / 88; Pulse 93; Resp 16 S; Temp 98.4(O); Pulse Ox 95% on R/A; aa5 10:00 BP 146 / 84; Pulse 67; Resp 15; Pulse Ox 96% ; Pain 10/10; jl7 11:00 Pain 7/10; jl7 11:30 BP 152 / 83; Pulse 69; Resp 15; Pulse Ox 96% ; Pain 7/10; jl7 10:00 Pain Scale: Adult jl7 11:00 Pain Scale: Adult jl7 11:30 Pain Scale: Adult jl7 ED Course: 08:52 Patient arrived in ED. cj3 08:52 Ethan Lisa MD is Attending Physician. rn 08:53 Arm band placed on Patient placed in an exam room, on a stretcher. aa5 08:59 Debby Rodriguez, ANALY is Primary Nurse. jl7 09:00 Patient has correct armband on for positive identification. Provided Education on: use jl7 of call nevarez. 09:02 Triage completed. aa5 09:14 Basic Metabolic Panel Sent. em1 09:14 CBC with Diff Sent. em1 09:14 Initial lab(s) drawn, by me, sent to lab. Inserted saline lock: 20 gauge in right em1 antecubital area, using aseptic technique. Blood collected. Flushed with 10 mL NS. 09:45 CT Soft Tissue Neck W/contr In Process Unspecified. EDMS 10:28 initiated a transfer with Ivonne from the [facility] Transfer Center. eb 10:38 connected the OMF surgeon media relations manager for [facility] for patient transfer consultation. eb 10:41 administrative approval given by Ivonne Magdaleno/ patient has been accepted to [facility] ED/ Dr. Yandel Luke has accepted the patient in transfer/ report to be called to [phone]. 12:01 No provider procedures requiring assistance completed. Patient transferred, IV remains jl7 in place. intact, No redness/swelling at site. Administered Medications: 09:15 Drug: morphine IVP or IV 4 mg IVP once over 4 mins Route: IVP; Infused Over: 4 mins; jl7 Site: right antecubital; 10:15 Follow up: Response: No adverse reaction; Pain is unchanged, physician notified; RASS: [facility] Alert and Calm (0) 09:15 Drug: Ondansetron IVP 4 mg IVP once; over 2 minutes Route: IVP; Site: right antecubital;jl7 11:57 Follow up: Response: No adverse reaction jl7 10:23 Drug: morphine IVP or IV 4 mg IVP once over 4 mins Route: IVP; Infused Over: 4 mins; jl7 Site: right antecubital; 10:25 Follow up: Response: No adverse reaction; Pain is unchanged, physician notified jl7 10:30 Drug: Piperacillin-Tazobactam IVPB 3.375 grams IVPB once over 60 mins; (mix in NS 100 jl7 mL) Route: IVPB; Infused Over: 60 mins; Site: right antecubital; 11:30 Follow up: Response: No adverse reaction; IV Status: Completed infusion jl7 10:30 Drug: fentaNYL (PF) IVP 50 mcg IVP once Route: IVP; Site: right antecubital; jl7 11:00 Follow up: Pain 7/10 Adult; Response: No adverse reaction; Pain is decreased; RASS: [facility] Alert and Calm (0) 11:32 Drug: vancoMYCIN IVPB 1 grams IVPB once over 2 hrs Route: IVPB; Infused Over: 2 hrs; jl7 Site: right antecubital; 11:59 Follow up: IV Status: Infusion continued upon transfer jl7 11:40 Drug: fentaNYL (PF) IVP 50 mcg IVP once Route: IVP; Site: right antecubital; jl7 11:59 Follow up: Response: No adverse reaction; Pain is decreased; RASS: Alert and Calm (0) jl7 Medication: 09:00 VIS not applicable for this client. Outcome: 10:30 ER care complete, transfer ordered by MD. guajardo 12:01 Transferred by ground EMS to [facility], Transfer form completed. 12: Condition: stable 12:01 Discharge instructions given to patient, Instructed on the need for transfer, Demonstrated understanding of instructions, 12:01 Patient left the ED. Signatures: Dispatcher [employer] EDEthan Hernandez MD MD rn Martinez, Sourav em1 Violet Fountain, RN RN aa5 Debby Rodriguez RN RN jl7 Dalila Lugo Celeste 3
--- NOTE | 2024-08-01 10:31 | EDPHYS ---
Physician Documentation [facility] Name: Ladonna Asif Age: 44 yrs Sex: Female : 1980 Arrival Date: 08/01/2024 Time: 08:48 Bed 14 Private MD: ED Physician Ethan Lisa HPI: 08/01 09:42 This 44 yrs old Female presents to ER via Ambulatory with complaints of Toothache, rn Facial Swelling, Headache. 09:42 The patient presents with pain, swelling. Onset: The symptoms/episode began/occurred 1 rn week(s) ago. Modifying factors: The symptoms are alleviated by nothing, the symptoms are aggravated by nothing. The patient has experienced similar episodes in the past. Patient reports 1 week of left jaw pain and swelling, getting worse despite antibiotics. Seen recently with imaging and patient states is worse. No trouble swallowing or breathing.. Historical: - Allergies: 09:00 Betadine; aa5 - PMHx: 09:00 generalized tremors; aa5 - Family history:: not pertinent. - Hospitalizations: : No recent hospitalization is reported. ROS: 09:42 Constitutional: Negative for fever, chills, and weight loss, ENT: Positive for left jaw rn pain and swelling Neck: Pain from jaw radiates to left neck Respiratory: Negative for shortness of breath, cough, wheezing, and pleuritic chest pain, Neuro: Negative for headache, weakness, numbness, tingling, and seizure, Exam: 09:42 Constitutional: This is a well developed, well nourished patient who is awake, alert, rn and in no acute distress. ENT: No intraoral abscess or infection noted. Swelling and tenderness noted to left mandibular body. No stridor Neck: Mild tenderness left neck without crepitus or mass Respiratory: No increased work of breathing, no retractions or nasal flaring. Vital Signs: 08:53 BP 150 / 88; Pulse 93; Resp 16 S; Temp 98.4(O); Pulse Ox 95% on R/A; aa5 10:00 BP 146 / 84; Pulse 67; Resp 15; Pulse Ox 96% ; Pain 10/10; jl7 11:00 Pain 7/10; jl7 11:30 BP 152 / 83; Pulse 69; Resp 15; Pulse Ox 96% ; Pain 7/10; jl7 10:00 Pain Scale: Adult jl7 11:00 Pain Scale: Adult jl7 11:30 Pain Scale: Adult jl7 MDM: 08:52 Medical Screening Exam initiated rn 10:28 Differential diagnosis: dental caries, dental abscess, Failed outpatient treatment, rn deep space infection. Data reviewed: vital signs, nurses notes, lab test result(s), radiologic studies, CT scan, and as a result, I will discharge patient. Counseling: I had a detailed discussion with the patient and/or guardian regarding the historical points, exam findings, and any diagnostic results supporting the discharge/admit diagnosis, lab results, radiology results, the need for further work-up and treatment in the hospital, the need to transfer to another facility. Response to treatment: the patient's symptoms have mildly improved after treatment. ED course: CT shows persistence dental abscess/fluid collection with cellulitis and extension into the neck concerning for early deep space infection. Patient has been on oral clindamycin for 2 days without improvement and actually worsening. Decision made to transfer patient for OMFS, waiting for callback from [place].. 08/01 09:00 Order name: CBC with Diff; Complete Time: 09:33 rn 08/01 09:00 Order name: Basic Metabolic Panel; Complete Time: 09:33 rn 08/01 09:00 Order name: CT Soft Tissue Neck W/contr; Complete Time: 10:23 rn 08/01 09:00 Order name: IV Start; Complete Time: 09:14 rn Administered Medications: 09:15 Drug: morphine IVP or IV 4 mg IVP once over 4 mins Route: IVP; Infused Over: 4 mins; jl7 Site: right antecubital; 10:15 Follow up: Response: No adverse reaction; Pain is unchanged, physician notified; RASS: [facility] Alert and Calm (0) 09:15 Drug: Ondansetron IVP 4 mg IVP once; over 2 minutes Route: IVP; Site: right antecubital;jl7 11:57 Follow up: Response: No adverse reaction jl7 10:23 Drug: morphine IVP or IV 4 mg IVP once over 4 mins Route: IVP; Infused Over: 4 mins; jl7 Site: right antecubital; 10:25 Follow up: Response: No adverse reaction; Pain is unchanged, physician notified jl 10:30 Drug: Piperacillin-Tazobactam IVPB 3.375 grams IVPB once over 60 mins; (mix in NS 100 jl7 mL) Route: IVPB; Infused Over: 60 mins; Site: right antecubital; 11:30 Follow up: Response: No adverse reaction; IV Status: Completed infusion jl7 10:30 Drug: fentaNYL (PF) IVP 50 mcg IVP once Route: IVP; Site: right antecubital; jl7 11:00 Follow up: Pain 10/28 Adult; Response: No adverse reaction; Pain is decreased; RASS: jl7 Alert and Calm (0) 11:32 Drug: vancoMYCIN IVPB 1 grams IVPB once over 2 hrs Route: IVPB; Infused Over: 2 hrs; jl7 Site: right antecubital; 11:59 Follow up: IV Status: Infusion continued upon transfer jl7 11:40 Drug: fentaNYL (PF) IVP 50 mcg IVP once Route: IVP; Site: right antecubital; jl7 11:59 Follow up: Response: No adverse reaction; Pain is decreased; RASS: Alert and Calm (0) jl7 Disposition Summary: 08/01/24 10:30 Transfer Ordered Notes: Transfer Location: [facility] rn Reason: Higher level of care rn Condition: Stable rn Problem: new rn Symptoms: have worsened rn Accepting Physician: Dr.J Luke(08/01/24 12:01) jl7 Diagnosis - Cellulitis of face rn - Cellulitis of neck rn - Periapical abscess without sinus rn Forms: - Medication Reconciliation Form rn - SBAR form rn Signatures: Dispatcher [employer] EDEthan Hernandez MD MD rn Calderon, Audri RN RN [email or web address] Debby Rodriguez RN RN jl7 Dalila Lugo Corrections: (The following items were deleted from the chart) 10:46 10:30 Dr. bennett prince 12:01 10:46 Dr.J Lkue eb jl7
[2024-08-01 12:33] VITALS: BP 152/83; TEMP 98.4; O2SAT 96
== END 2024-08-01 12:01 | disposition short-term general hospital (02) ==
LOC: ER 08:48
DX: K04.7 Periapical abscess without sinus (principal); L03.211 Cellulitis of face; L03.221 Cellulitis of neck
CPT/HCPCS: 96365; 96367; 85025; 80048; 36415; 70491; 96375; 99285; Q9967; J2543; J3010 ×2; J3370; J2405; J7050

== ENCOUNTER 2024-08-09 10:16 | Inpatient (IN) | payer BC ==
[2024-08-09] MEDS ORDERED: KETOROLAC 30 MG/ML INJ ONE (10:39)
[2024-08-09] MEDS ORDERED: MORPHINE 4 MG/ML SYR ONE (10:39)
[2024-08-09] MEDS ORDERED: ONDANSETRON 4 MG/2 ML VIAL ONE ×2 (10:39→12:07)
[2024-08-09] MEDS ORDERED: AMPICILLIN/SULBACT 1.5GM VIAL ONE (10:39)
[2024-08-09] MEDS ORDERED: NA CHLORIDE 0.9% 100 ML ONE ×2 (10:40→16:20)
[2024-08-09] MEDS ORDERED: NA CHLORIDE 0.9% 1,000 ML ONE (10:40)
[2024-08-09 10:50] LABS: Absolute Lymphocytes (CBC) 1.5 K/uL (0.7-4.9); Absolute Monocytes 0.6 K/uL (0.1-1.3); Basophils % 0.4 % (0-1.3); Eosinophils % 0.3 % (0-4.4); Hematocrit 38.9 % (36.0-45.0); Hemoglobin 13.8 g/dL (12.0-15.0); Lymphocytes % 16.8 % (15.3-44.8); MCH 31.1 pg (27.0-35.0); MCHC 35.6 g/dL (32.0-36.0); MCV 87.3 fL (80-100); MPV 6.5 fL (7.6-11.3); Neutrophils % 75.5 % (41.7-73.7); Platelets 453 thou/uL (152-406); RBC Red Blood Cell Count 4.45 M/uL (3.86-4.86); Red Cell Distribution Width 12.8 % (12.1-15.2)
[2024-08-09 11:20] LABS: Albumin 3.8 g/dL (3.4-5.0); Albumin/Globulin Ratio 0.9 (1.1-1.8); Anion Gap 12.8 mEq/L (5.0-15.0); Bilirubin Total 0.6 mg/dL (0.2-1.0); Globulin 4.4 g/dL (2.3-3.5); Potassium 2.8 mEq/L (3.5-5.1); Protein, Total 8.2 g/dL (6.4-8.2); Troponin High Sensitivity 42.2 pg/mL (<58.9)
--- NOTE | 2024-08-09 11:46 | RAD REPORT ---
EXAM: Soft Tissue Neck W/Contr INDICATION: infection TECHNIQUE: Helical CT examination of the neck with IV contrast. Sagittal and coronal reformations wer e generated. This exam was performed according to our departmental dose-optimization program, which includes automated exposure control, adjustment of the mA and/or kV according to patient size and/or use of iterative reconstruction technique. COMPARISON: 08/01/2024 FINDINGS: Aerodigestive Tract Structures: Nasopharynx, oropharynx, oral cavity, larynx and hypopharynx are norm al. Lymph Nodes: No pathologic appearing cervical lymph nodes. Parotid Glands: Normal Submandibular Glands: Normal Thyroid Gland: Normal Included Intracranial Structures: Normal Included Orbits: Normal Paranasal Sinuses: Predominantly clear Tympanomastoid Cavities: Normal Vascular Structures: Normal Osseous Structures: Periapical lucency associated with the left second molar on the mandibular side is again noted. Previously noted small subperiosteal fluid collection has resolved though there is still some adjacent inflammatory changes. Included Lung Apices: Normal IMPRESSION: Improvement from prior including resolution of inflammatory changes at the level of the thyroid carti lionel identified on the prior exam. In addition, inflammation associated with the left second mandibular molar is slightly decreased and the small fluid collection is no longer identified.
--- NOTE | 2024-08-09 11:51 | RAD REPORT ---
EXAM: Chest Abdomen W Con CLINICAL INDICATION: Female, 44 years CHEST PAIN TECHNIQUE: CT chest, abdomen was performed, with IV contrast, as per department protocol. Axial, sagi ttal and coronal reconstructions were obtained. One or more of the following dose reduction techniques were used: Automated exposure control, adjustment of the mA and/or kV according to the pat ient size, and/or iterative reconstruction. Unless otherwise specified, incidental findings do not require dedicated imaging follow-up. [id number]. COMPARISON: No prior exam. FINDINGS: ---THORAX--- LOWER NECK AND CHEST WALL: Visualized thyroid gland and soft tissues are normal. LUNGS AND AIRWAYS: Dependent atelectasis.No dominant or clearly suspicious nodule identified. PLEURA: No pleural effusion. No pneumothorax. MEDIASTINUM AND LYMPH NODES: No mediastinal mass or fluid collection. Normal size mediastinal, hilar, and axillary lymph nodes. THORACIC AORTA: No thoracic aortic aneurysm. PULMONARY ARTERIES: Caliber is within normal limits. HEART: Normal heart size. No coronary calcifications.No significant pericardial effusion. ---ABDOMEN/PELVIS--- UPPER GI: No significant abnormality. LIVER: No significant focal abnormality. GALLBLADDER/BILE DUCTS: Distended but no pericholecystic inflammatory changes..? PANCREAS: No mass, ductal dilation, or jero-pancreatic fluid. SPLEEN: Unremarkable. ADRENALS: No adrenal masses. KIDNEYS AND URETERS: No hydronephrosis.No suspicious renal mass.No renal calculi.No ureteral calculi. ABDOMINAL AORTA AND OTHER VESSELS: Normal caliber aorta and IVC. PERITONEUM: No abnormal free fluid. No free air. LYMPH NODES: No pathologic lymphadenopathy. ABDOMINAL WALL: Unremarkable SMALL BOWEL/COLON: Small bowel has normal course and caliber. No colonic wall thickening or pericolon ic inflammatory changes.Appendix not visualized. It may not be included in the [id number]. ---COMBINED--- MUSCULOSKELETAL: No acute or suspicious osseous abnormality. ADDITIONAL FINDINGS: None. IMPRESSION: No acute findings in the chest or abdomen.
[2024-08-09] MEDS ORDERED: FENTANYL CITR 100 MCG/2 ML ONE (12:07)
[2024-08-09] MEDS ORDERED: KCL 20 MEQ/100 mL IVPB 200 ML IV ONE (12:57)
[2024-08-09] MEDS ORDERED: METOCLOPRAMIDE 10 MG/2mL INJ ONE (12:57)
[2024-08-09] MEDS ORDERED: DIPHENHYDRAMINE 50 MG/ML VIAL ONE (12:58)
[2024-08-09] MEDS ORDERED: NA CHLORIDE 0.9% 500 ML ONE (12:59)
--- NOTE | 2024-08-09 13:07 | ER ---
Nurse's Notes [facility] Name: Ladonna Asif Age: 44 yrs Sex: Female : 1980 Arrival Date: 08/09/2024 Time: 10:16 Bed 2 Private MD: Diagnosis: Intractable nausea and vomiting;Hypokalemia Presentation: 08/09 10:19 Chief complaint: Patient states: she was evaluated recently for a tooth abscess. ap3 patient complains of continued pain in the left lower jaw, nausea, loss of appetite, and patient states "i just don't feel right". patient reports she hasn't been able to tolerate her antibiotics. Coronavirus screen: At this time, the client does not indicate any symptoms associated with coronavirus-19. Ebola Screen: No symptoms or risks identified at this time. Initial Sepsis Screen: Does the patient meet any 2 criteria? No. Patient's initial sepsis screen is negative. Does the patient have a suspected source of infection? No. Patient's initial sepsis screen is negative. Risk Assessment: Do you want to hurt yourself or someone else? Patient reports no desire to harm self or others. Onset of symptoms is unknown. 10:19 Method Of Arrival: Wheelchair ap3 10:19 Acuity: KRISTIN 3 ap3 Triage Assessment: 10:22 General: Appears ill, Behavior is calm, cooperative. Pain: Complains of pain in mouth, ap3 generalized body aches. Neuro: Level of Consciousness is awake, alert, obeys commands, Oriented to person, place, time, situation, Appropriate for age. Cardiovascular: Patient's skin is warm and dry. Respiratory: Airway is patent Respiratory effort is even, unlabored, Respiratory pattern is regular, symmetrical. GI: Reports intolerance of fluids, intolerance of food, nausea. 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 - Infectious Disease History:: Denies. - Social history:: Smoking status: Reported history of juuling and/or vaping. - Family history:: not pertinent. Screenin:23 Abuse screen: Denies threats or abuse. Nutritional screening: Has had N/V for 3 or more ap3 days. Tuberculosis screening: No symptoms or risk factors identified. 10:35 [facility] ED Fall Risk Assessment (Adult) History of falling in the last 3 months, aa5 including since admission No falls in past 3 months (0 pts) Confusion or Disorientation No (0 pts) Intoxicated or Sedated No (0 pts) Impaired Gait No (0 pts) Mobility Assist Device Used No (0 pt) Altered Elimination No (0 pt) Score/Fall Risk Level 0 - 2 = Low Risk Oriented to surroundings, Maintained a safe environment, Educated pt \\T\\ family on fall prevention, incl call for assistance when getting out of bed, Assessed \\T\\ reinforced patient's understanding of fall precautions. Assessment: 10:33 General: Appears uncomfortable, Behavior is calm, cooperative. Pain: Complains of pain aa5 in left jaw and neck Pain radiates to down to throat and to chest Pain currently is 6 out of 10 on a pain scale. Quality of pain is described as burning, Pain began 1-2 weeks ago Is continuous. Neuro: Level of Consciousness is awake, alert, obeys commands, Oriented to person, place, time, situation, Appropriate for age. Cardiovascular: Heart tones S1 S2 present Patient's skin is warm and dry. Rhythm is regular. Respiratory: Airway is patent Respiratory effort is even, unlabored, Respiratory pattern is regular, symmetrical. GI: Abdomen is round non-distended, Bowel sounds present X 4 quads. Abd is soft and non tender X 4 quads. Reports intolerance of fluids, intolerance of food, nausea, vomiting, Reports symptoms x 1 week ago, also reports decreased appetite. : No signs and/or symptoms were reported regarding the genitourinary system. EENT: Reports sore throat . Derm: Skin is pink, warm \\T\\ dry. Musculoskeletal: Range of motion: intact in all extremities. 11:30 Reassessment: Patient is alert, oriented x 3, equal unlabored respirations, skin aa5 warm/dry/pink. Patient states symptoms have not improved. MD was notified. . 12:30 Reassessment: Pt resting in bed with eyes closed, respirations are even and unlabored, aa5 appears comfortable. . 13:15 Reassessment: Patient states feeling better. Neuro: Level of Consciousness is awake, aa5 alert, obeys commands, Oriented to person, place, time, situation. Respiratory: Airway is patent Respiratory effort is even, unlabored, relaxed, Respiratory pattern is regular, symmetrical. Derm: Skin is pink, warm \\T\\ dry. 14:41 Reassessment: Patient is alert, oriented x 3, equal unlabored respirations, skin aa5 warm/dry/pink. Patient states feeling better. 15:30 Reassessment: Pt sleeping. . aa5 16:35 Reassessment: Report faxed to admitting nurse . aa5 17:10 Reassessment: Patient is alert, oriented x 3, equal unlabored respirations, skin aa5 warm/dry/pink. Vital Signs: 10:19 BP 133 / 92; Pulse 81; Resp 18; Temp 97.8(O); Pulse Ox 94% on R/A; Weight 88.45 kg; ap3 Pain 6/10; 10:59 Pulse Ox 88% on R/A; aa5 11:00 BP 130 / 90; Pulse 56; Resp 15; Pulse Ox 96% on 2 lpm NC; cm10 12:00 BP 136 / 84; Pulse 61; Resp 15; Pulse Ox 96% on 2 lpm NC; cm10 13:13 BP 124 / 90; Pulse 72; Resp 14 S; Pulse Ox 100% on 2 lpm NC; aa5 15:30 BP 120 / 70; Pulse 65; Resp 14 S; Temp 97.8(TE); Pulse Ox 100% on 2 lpm NC; aa5 16:30 BP 122 / 82; Pulse 64; Resp 16 S; Pulse Ox 100% on 2 lpm NC; aa5 10:19 Pain Scale: Adult ap3 ED Course: 10:18 Patient arrived in ED. ap3 10:18 Juan Donnelly MD is Attending Physician. rt 10:19 Violet Fountain, ANALY is Primary Nurse. aa5 10:21 Triage completed. ap3 10:24 Arm band placed on left wrist. ap3 10:24 Patient has correct armband on for positive identification. Bed in low position. Call ap3 light in reach. Side rails up X2. Door closed. Noise minimized. Warm blanket given. 10:24 Provided Education on: call light education. ap3 10:35 Initial lab(s) drawn, by me, sent to lab. Inserted saline lock: 20 gauge in right aa5 antecubital area, using aseptic technique. Blood collected. Flushed with 10 mL NS. 10:59 EKG done, by ED staff, reviewed by Juan Donnelly MD. aa5 11:03 No provider procedures requiring assistance completed. aa5 11:29 CT Soft Tissue Neck W/contr In Process Unspecified. EDMS 11:29 CT Chest Abdomen W/ Contrast In Process Unspecified. EDMS 13:06 Alberto Hess is Hospitalizing Provider. rt 13:15 Client placed on continuous cardiac and pulse oximetry monitoring. NIBP monitoring aa5 applied. hospital monitor on. Pulse ox on. NIBP on. 17:10 Patient admitted, IV remains in place. aa5 Administered Medications: 17:42 Discontinued: ns 0.9% 500 ml IV at 75 ml/hr once aa5 10:55 Drug: morphine IVP or IV 4 mg IVP once over 4 mins Route: IVP; Infused Over: 4 mins; aa5 Site: right antecubital; 11:00 Follow up: Response: No adverse reaction aa5 10:55 Drug: Ondansetron IVP 4 mg IVP once; over 2 minutes Route: IVP; Site: right antecubital;aa5 11:00 Follow up: Response: No adverse reaction aa5 10:55 Drug: Ketorolac IVP 15 mg IVP once Route: IVP; Site: right antecubital; aa5 11:00 Follow up: Response: No adverse reaction aa5 10:55 Drug: NS 0.9% IV 1000 ml IV at 1 bolus Per protocol; to be given as a bolus over 60 aa5 minutes Route: IV; Rate: 1 bolus; Site: right antecubital; 11:55 Follow up: IV Status: Completed infusion; IV Intake: 1000ml aa5 11:00 Drug: Ampicillin-Sulbactam Sodium IVPB 1.5 grams IVPB once over 30 mins; (mix in 100 mL aa5 NS) Route: IVPB; Infused Over: 30 mins; Site: right antecubital; 11:10 Follow up: Response: No adverse reaction aa5 11:30 Follow up: Response: No adverse reaction; IV Status: Completed infusion aa5 12:19 Drug: fentaNYL (PF) IVP 50 mcg IVP once Route: IVP; Site: right antecubital; cm10 12:30 Follow up: Response: No adverse reaction aa5 12:20 Drug: Ondansetron IVP 4 mg IVP once; over 2 minutes Route: IVP; Site: right antecubital;cm10 12:30 Follow up: Response: No adverse reaction aa5 13:12 Drug: metoCLOPramide IVP 10 mg IVP once; over 1 to 2 minutes Route: IVP; Site: right aa5 antecubital; 13:20 Follow up: Response: No adverse reaction aa5 13:12 Drug: diphenhydrAMINE IVP 25 mg IVP once Route: IVP; Site: right antecubital; aa5 13:20 Follow up: Response: No adverse reaction aa5 13:18 Drug: Potassium Chloride IV 40 mEq IV at calculated rate once; administer over 4 hours aa5 Route: IV; Rate: calculated rate; Site: right antecubital; 17:10 Follow up: IV Status: Infusion continued upon admission aa5 13:18 Drug: NS 0.9% IV 500 ml IV at 75 ml/hr once Route: IV; Rate: 75 ml/hr; Site: right aa5 antecubital; 17:42 Follow up: Infusion dc'd at 1630 aa5 14:41 Drug: GI Cocktail without - (Maalox PO 30 ml, Lidocaine Mucous Membrane 2 % 15 aa5 ml) PO once Route: PO; 15:30 Follow up: Response: No adverse reaction aa5 14:41 Drug: Famotidine IVP 20 mg IVP once; dilute with 10 mL 0.9% NaCl; give over 2 minutes aa5 Route: IVP; Site: right antecubital; 15:30 Follow up: Response: No adverse reaction aa5 Medication: 11:03 VIS not applicable for this client. aa5 Intake: 11:55 IV: 1000ml; Total: 1000ml. aa5 Outcome: 13:06 Decision to Hospitalize by Provider. rt 17:10 Admitted to Med/surg accompanied by tech, via wheelchair, with chart, aa5 17:10 Condition: stable 17:10 Instructed on the need for admit, Demonstrated understanding of instructions, 17:18 Patient left the ED. ap3 Signatures: Dispatcher [employer] EDViolet Hansen RN RN aa5 Arleth Leal RN RN ap3 Juan Donnelly MD MD rt Rosi Pagan RN RN cm10 Corrections: (The following items were deleted from the chart) 13:19 11:55 IV Status: Completed infusion aa5 aa5
--- NOTE | 2024-08-09 13:07 | EDPHYS ---
Physician Documentation [facility] Name: Ladonna Asif Age: 44 yrs Sex: Female : 1980 Arrival Date: 08/09/2024 Time: 10:16 Bed 2 Private MD: ED Physician Juan Donnelly HPI: 08/09 11:37 This 44 yrs old Female presents to ER via Wheelchair with complaints of Toothache. rt 11:37 Patient had a recent diagnosis of an odontogenic abscess with facial cellulitis, she rt was subsequently transferred to [facility] about 1 week ago where she states that she was discharged and not admitted. Patient states that she has not not been able to tolerate her antibiotics by mouth due to nausea, vomiting. Patient states that she feels generally unwell. States that despite not able to keep the antibiotics down, the swelling has seemed to improve. Denies other acute complaints at this time, symptoms are moderate in severity, no other aggravating or alleviating factors.. 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 - Infectious Disease History:: Denies. - Social history:: Smoking status: Reported history of juuling and/or vaping. - Family history:: not pertinent. ROS: 11:37 Constitutional: Negative for fever, chills, and weight loss, Cardiovascular: Negative rt for chest pain, palpitations, and edema, Respiratory: Negative for shortness of breath, cough, wheezing, and pleuritic chest pain, Skin: Negative for injury, rash, and discoloration, Neuro: Negative for headache, weakness, numbness, tingling, and seizure, 11:37 ENT: Positive for Dental pain, facial swelling, 11:37 Abdomen/GI: Positive for nausea and vomiting, Exam: 11:37 ENT: rt 11:37 ECG was reviewed by the Attending Physician. 11:43 ENT: rt 11:46 ENT: Minimal swelling noted at the left angle of the mandible, mild warmth to the area, rt no drainable abscesses, oropharyngeal edema. Vital Signs: 10:19 BP 133 / 92; Pulse 81; Resp 18; Temp 97.8(O); Pulse Ox 94% on R/A; Weight 88.45 kg; ap3 Pain 6/10; 10:59 Pulse Ox 88% on R/A; aa5 11:00 BP 130 / 90; Pulse 56; Resp 15; Pulse Ox 96% on 2 lpm NC; cm10 12:00 BP 136 / 84; Pulse 61; Resp 15; Pulse Ox 96% on 2 lpm NC; cm10 13:13 BP 124 / 90; Pulse 72; Resp 14 S; Pulse Ox 100% on 2 lpm NC; aa5 15:30 BP 120 / 70; Pulse 65; Resp 14 S; Temp 97.8(TE); Pulse Ox 100% on 2 lpm NC; aa5 16:30 BP 122 / 82; Pulse 64; Resp 16 S; Pulse Ox 100% on 2 lpm NC; aa5 10:19 Pain Scale: Adult ap3 MDM: 10:22 Medical Screening Exam initiated rt 13:12 Differential diagnosis: Odontogenic infection, abscess, electrolyte disturbance, rt nausea, vomiting. Data reviewed: vital signs, nurses notes, lab test result(s), EKG, radiologic studies. Consideration of Admission/Observation Patient was admitted/placed on observation. Management of patient was discussed with the following: Hospitalist: Agrees to admit. I considered the following discharge prescriptions or medication management in the emergency department Medications were administered in the Emergency Department. See MAR. Independent interpretation of the following test(s) in the Emergency Department CT Scan: My interpretation is No bowel obstruction seen on interpretation of CT scan images. Counseling: I had a detailed discussion with the patient and/or guardian regarding the historical points, exam findings, and any diagnostic results supporting the discharge/admit diagnosis, lab results, radiology results, the need for further work-up and treatment in the hospital. Response to treatment: the patient's symptoms have mildly improved after treatment. 08/09 10:30 Order name: CBC with Diff; Complete Time: 11:22 rt 08/09 10:30 Order name: CMP; Complete Time: 11:22 rt 08/09 10:30 Order name: Troponin High Sensitivity; Complete Time: 11:22 rt 08/09 12:49 Order name: Magnesium; Complete Time: 13:42 rt 08/09 13:49 Order name: Basic Metabolic Panel EDMS 08/09 13:49 Order name: Basic Metabolic Panel EDMS 08/09 13:49 Order name: Basic Metabolic Panel EDMS 08/09 13:49 Order name: Basic Metabolic Panel EDMS 08/09 13:49 Order name: Basic Metabolic Panel EDMS 08/09 13:49 Order name: CBC with Automated Diff EDMS 08/09 13:49 Order name: CBC with Automated Diff EDMS 08/09 13:49 Order name: CBC with Automated Diff EDMS 08/09 13:49 Order name: CBC with Automated Diff EDMS 08/09 13:49 Order name: CBC with Automated Diff EDMS 08/09 13:49 Order name: Magnesium EDMS 08/09 13:49 Order name: Magnesium EDMS 08/09 13:49 Order name: Magnesium EDMS 08/09 13:49 Order name: Magnesium EDMS 08/09 13:49 Order name: Magnesium EDMS 08/09 13:49 Order name: Phosphorus EDMS 08/09 13:49 Order name: Phosphorus EDMS 08/09 13:49 Order name: Phosphorus EDMS 08/09 13:49 Order name: Phosphorus EDMS 08/09 13:49 Order name: Phosphorus EDMS 08/09 13:49 Order name: T4 Free EDMS 08/09 13:49 Order name: T4 Free EDMS 08/09 13:49 Order name: Thyroid Stimulating Hormone EDMS 08/09 13:49 Order name: Thyroid Stimulating Hormone EDMS 08/09 10:31 Order name: CT Soft Tissue Neck W/contr; Complete Time: 11:52 rt 08/09 10:31 Order name: CT Chest Abdomen W/ Contrast; Complete Time: 11:52 rt 08/09 10:30 Order name: EKG; Complete Time: 10:30 rt 08/09 10:30 Order name: EKG - Nurse/Tech; Complete Time: 11:02 rt 08/09 13:20 Order name: Cardiac monitoring: VO at 1315; Complete Time: 13:20 aa5 EC:37 Rate is 58 beats/min. Rhythm is regular, Sinus bradycardia with No ectopy, U wave rt present. QRS [place] is Normal. AL interval is normal. QRS interval is normal. QT interval is normal. No Q waves. T waves are Normal. No ST changes noted. Interpreted by me. Administered Medications: 17:42 Discontinued: ns 0.9% 500 ml IV at 75 ml/hr once aa5 10:55 Drug: morphine IVP or IV 4 mg IVP once over 4 mins Route: IVP; Infused Over: 4 mins; aa5 Site: right antecubital; 11:00 Follow up: Response: No adverse reaction aa5 10:55 Drug: Ondansetron IVP 4 mg IVP once; over 2 minutes Route: IVP; Site: right antecubital;aa5 11:00 Follow up: Response: No adverse reaction aa5 10:55 Drug: Ketorolac IVP 15 mg IVP once Route: IVP; Site: right antecubital; aa5 11:00 Follow up: Response: No adverse reaction aa5 10:55 Drug: NS 0.9% IV 1000 ml IV at 1 bolus Per protocol; to be given as a bolus over 60 aa5 minutes Route: IV; Rate: 1 bolus; Site: right antecubital; 11:55 Follow up: IV Status: Completed infusion; IV Intake: 1000ml aa5 11:00 Drug: Ampicillin-Sulbactam Sodium IVPB 1.5 grams IVPB once over 30 mins; (mix in 100 mL aa5 NS) Route: IVPB; Infused Over: 30 mins; Site: right antecubital; 11:10 Follow up: Response: No adverse reaction aa5 11:30 Follow up: Response: No adverse reaction; IV Status: Completed infusion aa5 12:19 Drug: fentaNYL (PF) IVP 50 mcg IVP once Route: IVP; Site: right antecubital; cm10 12:30 Follow up: Response: No adverse reaction aa5 12:20 Drug: Ondansetron IVP 4 mg IVP once; over 2 minutes Route: IVP; Site: right antecubital;cm10 12:30 Follow up: Response: No adverse reaction aa5 13:12 Drug: metoCLOPramide IVP 10 mg IVP once; over 1 to 2 minutes Route: IVP; Site: right aa5 antecubital; 13:20 Follow up: Response: No adverse reaction aa5 13:12 Drug: diphenhydrAMINE IVP 25 mg IVP once Route: IVP; Site: right antecubital; aa5 13:20 Follow up: Response: No adverse reaction aa5 13:18 Drug: Potassium Chloride IV 40 mEq IV at calculated rate once; administer over 4 hours aa5 Route: IV; Rate: calculated rate; Site: right antecubital; 17:10 Follow up: IV Status: Infusion continued upon admission aa5 13:18 Drug: NS 0.9% IV 500 ml IV at 75 ml/hr once Route: IV; Rate: 75 ml/hr; Site: right aa5 antecubital; 17:42 Follow up: Infusion dc'd at 1630 aa5 14:41 Drug: GI Cocktail without - (Maalox PO 30 ml, Lidocaine Mucous Membrane 2 % 15 aa5 ml) PO once Route: PO; 15:30 Follow up: Response: No adverse reaction aa5 14:41 Drug: Famotidine IVP 20 mg IVP once; dilute with 10 mL 0.9% NaCl; give over 2 minutes aa5 Route: IVP; Site: right antecubital; 15:30 Follow up: Response: No adverse reaction aa5 Disposition Summary: 08/09/24 13:06 Hospitalization Ordered Notes: Hospitalization Status: Observation rt Provider: Alberto Hess rt Condition: Fair rt Problem: new rt Symptoms: have improved rt Bed/Room Type: Standard rt Location: Telemetry/MedSurg (observation)(08/09/24 16:20) em1 Room Assignment: 429(08/09/24 16:20) em1 Diagnosis - Intractable nausea and vomiting rt - Hypokalemia rt Forms: - Medication Reconciliation Form rt - SBAR form rt - Leadership Thank You Letter rt Critical care time excluding procedures: 13:12 Critical care time: Bedside Care: 30 minutes, Consultation: 5 minutes. Total time: 35 rt minutes Signatures: Dispatcher [employer] Suorav Brown em1 Violet Fountain, RN RN aa5 Quentin Marx FNP-C FNP-Cla1 Arleth Leal RN RN ap3 Trupti Polanco RN RN amor3 Juan Donnelly MD MD rt Rosi Pagan RN RN cm10 Corrections: (The following items were deleted from the chart) 15:09 13:06 Telemetry/MedSurg (observation) rt kb3 15:09 13:06 rt kb3 16:20 15:09 [facility] ER HOLD kb3 em1 16:20 15:09 ERHOLD- kb3 em1
[2024-08-09] MEDS ORDERED: ACETAMINOPHEN 325 MG TABLET PO PRN (13:43)
[2024-08-09] MEDS ORDERED: PROMETHAZINE INJ 25 MG/ML AMP IV PRN (13:43)
[2024-08-09] MEDS ORDERED: SODIUM CHLORIDE 0.9% 10ML INJ IV PRN (13:43)
[2024-08-09] MEDS ORDERED: MAGNES/ALUMIN/SIMET 30ML UCUP ONE (14:37)
[2024-08-09] MEDS ORDERED: FAMOTIDINE 20 MG/2 ML VIAL IV ONE (14:37)
[2024-08-09] MEDS ORDERED: LIDOCAINE VISCOUS 2% 10ML ORAL SOLN ONE (14:38)
--- NOTE | 2024-08-09 15:34 | P.HP ---
Certification for Inpatient Patient admitted to: Observation With expected LOS: <2 Midnights Patient will require the following post-hospital care: None Practitioner: I am a practitioner with admitting privileges, knowledge of patient current condition, hospital course, and medical plan of care. Services: Services provided to patient in accordance with Admission requirements found in Title 42 Section 412.3 of the Code of Federal Regulations Patient History Date of Service: 08/09/24 Reason for admission: Hypokalemia, nausea/vomiting History of Present Illness: 44-year-old female with history of anxiety/depression, ADHD presents the emergency department with chief complaint of nausea and vomiting, malaise. She was seen here in the emergency department on 07/30, 07/31 and 08/01 for a dental abscess. She was ultimately transferred to [facility] on 08/01 where she was discharged in the emergency department on oral antibiotics. She reports that since she was discharged on 08/01 she has been dealing with persistent nausea and vomiting and unable to tolerate her oral antibiotics. Patient was evaluated in the emergency department labs are significant for a potassium of 2.8 sodium 134 white blood cell count was 9.2 CT of the soft tissue of his neck was performed which showed interval improvement of inflammation and dental abscess. CT chest abdomen was also performed was negative for acute findings. Patient still with persistent nausea, hypokalemia with EKG changes. Will need to be admitted for further evaluation and management of intractable n ausea and vomiting, hypokalemia. Allergies povidone-iodine [From Betadine] Allergy (Unverified 07/26/16 23:47) Unknown soap [From Betadine] Allergy (Unverified 07/26/16 23:47) Unknown - Past Medical/Surgical History -: ADHD -: Anxiety/depression -: Right shoulder surgery Psychosocial/ Personal History: Lives at home with her - Social History Alcohol use: No CD- Drugs: No Caffeine use: Yes Place of Residence: Home Review of Systems 10-point ROS is otherwise unremarkable Gastrointestinal: Nausea, Vomiting, Diarrhea Physical Examination - Physical Exam General: Alert, In no apparent distress, Oriented x3 HEENT: Atraumatic, PERRLA, EOMI Neck: Supple, 2+ carotid pulse no bruit, No LAD Respiratory: Clear to auscultation bilaterally, Normal air movement Cardiovascular: Regular rate/rhythm, Normal S1 S2 Gastrointestinal: Normal bowel sounds, No tenderness Musculoskeletal: No tenderness Integumentary: No rashes Neurological: Normal gait, Normal speech, Normal strength at 5/5 x4 extr, Normal affect - Studies Laboratory Data (last 24 hrs) 08/09/24 08/09/24 08/09/24 10:35 10:35 10:35 WBC 9.20 Hgb 13.8 Hct 38.9 Plt Count 453 H Sodium 134 L Potassium 2.8 L BUN 11 Creatinine 0.89 Glucose 92 Magnesium 2.1 Total Bilirubin 0.6 AST 15 ALT 44 Alkaline Phosphatase 108 Assessment and Plan - Plan Assessment: Intractable nausea and vomiting Hypokalemia Mild hyponatremia Recent dental infection/abscess ADHD/anxiety/depression Plan: Intractable nausea and vomiting Hypokalemia Mild hyponatremia Continue IV fluids/potassium supplementation Electrolyte protocols in place We will also continue PPI therapy Denies frequent NSAID use, unclear etiology of nausea and vomiting CT was negative, possibly related to antibiotics Recent dental infection/abscess Will treat with IV antibioticsUnasyn while inpatient ADHD/anxiety/depression Continue home medication when verified DVT PPX: Lovenox Code status: Full Discharge Plan: Home Plan to discharge in: 24 Hours - Advance Directives Does patient have a Living Will: No Does patient have a Durable POA for Healthcare: No - Code Status/Comfort Care Code Status Assessed: Yes (Full code) Critical Care: No Time Spent Managing Pts Care (In Minutes): 66
[2024-08-09] MEDS ORDERED: AMPICILLIN/SULBACTAM 3GM/VIAL ONE (16:20)
[2024-08-09] MEDS ORDERED: D5 0.45 NS 1,000 ML IV ONE (16:20)
[2024-08-09] MEDS ORDERED: D5.45NS W/KCL 20MEQ 1,000 ML IV ONE (16:27)
[2024-08-09] MEDS: D5.45NS W/KCL 20MEQ 1,000 ML IV SCH (16:30)
[2024-08-09] MEDS: AMPICILLIN/SULBACT 3 GM in NA CHLORIDE 0.9% 100 ML IVPB SCH (16:30)
[2024-08-09 18:27] VITALS: BMI 30.5
[2024-08-09] MEDS: MORPHINE 2 MG/ML SYR IV PRN (19:48)
[2024-08-09] MEDS: ONDANSETRON 4 MG/2 ML VIAL IV PRN (19:49)
[2024-08-09] MEDS: PANTOPRAZOLE 40 MG INJ IVP SCH (20:06)
[2024-08-10 06:28] LABS: Absolute Eosinophils 0.1 K/uL (0-0.5); Absolute Lymphocytes (CBC) 2.2 K/uL (0.7-4.9); Absolute Monocytes 0.5 K/uL (0.1-1.3); Absolute Neutrophil 3.9 K/uL (1.8-8.0); Basophils % 0.2 % (0-1.3); Hematocrit 31.9 % (36.0-45.0); Hemoglobin 11.4 g/dL (12.0-15.0); Lymphocytes % 32.4 % (15.3-44.8); MCH 31.8 pg (27.0-35.0); MCHC 35.8 g/dL (32.0-36.0); MCV 88.9 fL (80-100); MPV 6.7 fL (7.6-11.3); Monocytes % 7.5 % (3.3-12.3); Neutrophils % 58.9 % (41.7-73.7); Nucleated Red Blood Cells % 0.2 % (0-0); Platelets 342 thou/uL (152-406); RBC Red Blood Cell Count 3.59 M/uL (3.86-4.86)
[2024-08-10 06:53] LABS: Anion Gap 9.4 mEq/L (5.0-15.0); Magnesium 2.1 mg/dL (1.6-2.4); Phosphorus 2.8 mg/dL (2.5-4.9); Potassium 3.4 mEq/L (3.5-5.1)
[2024-08-10 06:57] LABS: Thyroid Stimulating Hormone 4.38 uIU/mL (0.358-3.740)
[2024-08-10] MEDS: KCL 20 MEQ/100 mL IVPB 100 ML IV SCH (08:00)
[2024-08-10] MEDS: ENOXAPARIN 40 MG/0.4 ML SQ SCH (09:15)
[2024-08-10] MEDS: POTASSIUM CL 40 MEQ in NA CHLORIDE 0.9% 500 ML IV ONE (09:15)
--- NOTE | 2024-08-10 15:34 | P.PN ---
Date of Service: 08/10/24 Subjective: Still with nausea, feeling unwell No acute events overnight ROS: 10 point ROS as noted above, otherwise negative Physical exam GEN: Alert, oriented, NAD HEENT: Normal conjunctiva, sclera anicteric CV: Regular rate and rhythm, no edema Pulm: Nonlabored respirations on room air ABD: Soft, nontender, nondistended MSK: No joint tenderness Integumentary: No rashes Neuro: Normal speech, normal affect Vitals reviewed Assessment: Intractable nausea and vomiting Hypokalemia Mild hyponatremia Recent dental infection/abscess ADHD/anxiety/depression Plan: Intractable nausea and vomiting Hypokalemia Mild hyponatremia Continue IV fluids/potassium supplementation-electrolytes improving Electrolyte protocols in place We will also continue PPI therapy-we will add Carafate Denies frequent NSAID use, unclear etiology of nausea and vomiting CT was negative, possibly related to antibiotics Recent dental infection/abscess Will treat with IV antibioticsUnasyn while inpatient ADHD/anxiety/depression Continue home medication when verified DVT PPX: Lovenox Code status: Full Discharge Plan: Home Plan to discharge in: 24 Hours Time Spent Managing Pts Care (In Minutes): 35
[2024-08-10] MEDS: SUCRALFATE 1GM/10ML UCUP PO SCH (16:19)
[2024-08-11 07:02] LABS: Absolute Eosinophils 0.1 K/uL (0-0.5); Absolute Lymphocytes (CBC) 2.3 K/uL (0.7-4.9); Absolute Monocytes 0.5 K/uL (0.1-1.3); Absolute Neutrophil 3.2 K/uL (1.8-8.0); Basophils % 0.6 % (0-1.3); Eosinophils % 1.4 % (0-4.4); Hematocrit 32.5 % (36.0-45.0); Hemoglobin 11.4 g/dL (12.0-15.0); Lymphocytes % 37.6 % (15.3-44.8); MCH 31.2 pg (27.0-35.0); MCHC 35.2 g/dL (32.0-36.0); MCV 88.7 fL (80-100); MPV 6.6 fL (7.6-11.3); Monocytes % 8.3 % (3.3-12.3); Neutrophils % 52.1 % (41.7-73.7); Nucleated Red Blood Cells % 0.1 % (0-0); Platelets 370 thou/uL (152-406); RBC Red Blood Cell Count 3.66 M/uL (3.86-4.86); Red Cell Distribution Width 12.9 % (12.1-15.2)
[2024-08-11 07:15] LABS: Anion Gap 7.5 mEq/L (5.0-15.0); Phosphorus 2.3 mg/dL (2.5-4.9); Potassium 3.5 mEq/L (3.5-5.1)
[2024-08-11 07:58] VITALS: O2SAT 97
--- NOTE | 2024-08-11 09:31 | P.DS ---
Admission Date: 08/10/24 Discharge Date: 08/11/24 Disposition: ROUTINE DISCHARGE Discharge Condition: GOOD Reason for Admission: Hypokalemia, nausea/vomiting Brief History of Present Illness: 44-year-old female with history of anxiety/depression, ADHD presents the emergency department with chief complaint of nausea and vomiting, malaise. She was seen here in the emergency department on 07/30, 07/31 and 08/01 for a dental abscess. She was ultimately transferred to [facility] on 08/01 where she was discharged in the emergency department on oral antibiotics. She reports that since she was discharged on 08/01 she has been dealing with persistent nausea and vomiting and unable to tolerate her oral antibiotics. Patient was evaluated in the emergency department labs are significant for a potassium of 2.8 sodium 134 white blood cell count was 9.2 CT of the soft tissue of his neck was performed which showed interval improvement of inflammation and dental abscess. CT chest abdomen was also performed was negative for acute findings. Patient still with persistent nausea, hypokalemia with EKG changes. Will need to be admitted for further evaluation and management of intractable nausea and vomiting, hypokalemia. Hospital Course: Assessment: Intractable nausea and vomiting Hypokalemia Mild hyponatremia Recent dental infection/abscess ADHD/anxiety/depression Patient with ongoing dental issues was admitted to the hospital for intractable nausea and vomiting along with hypokalemia. She was treated IV fluids, her potassium was replaced and her diet was slowly advanced. She is feeling much better at this time, she has appointment with her dentist at around 4 PM today. Prescriptions for Zofran, Protonix to be sent with patient, she should follow-up with her primary care doctor in 1 to 2 weeks Vital Signs/Physical Exam: Temp Pulse Resp BP Pulse Ox 97.8 F 55 20 144/80 H 97 08/11/24 08:00 08/11/24 08:00 08/11/24 08:00 08/11/24 08:00 08/11/24 08:00 General: Alert, In no apparent distress, Oriented x3 HEENT: Atraumatic, PERRLA Neck: Supple, JVD not distended Respiratory: Clear to auscultation bilaterally, Normal air movement Cardiovascular: Regular rate/rhythm, Normal S1 S2 Gastrointestinal: Normal bowel sounds Musculoskeletal: No tenderness Integumentary: No rashes Neurological: Normal speech Laboratory Data at Discharge: WBC 6.20 thou/uL (4.3-10.9) 08/11/24 06:44 Hgb 11.4 g/dL (12.0-15.0) L 08/11/24 06:44 Hct 32.5 % (36.0-45.0) L 08/11/24 06:44 Plt Count 370 thou/uL (152-406) 08/11/24 06:44 Sodium 139 mEq/L (136-145) 08/11/24 06:44 Potassium 3.5 mEq/L (3.5-5.1) 08/11/24 06:44 BUN 4 mg/dL (7-18) L 08/11/24 06:44 Creatinine 0.78 mg/dL (0.55-1.02) 08/11/24 06:44 Glucose 120 mg/dL (74-106) H 08/11/24 06:44 Phosphorus 2.3 mg/dL (2.5-4.9) L 08/11/24 06:44 Magnesium 2.0 mg/dL (1.6-2.4) 08/11/24 06:44 Total Bilirubin 0.6 mg/dL (0.2-1.0) 08/09/24 10:35 AST 15 U/L (15-37) 08/09/24 10:35 ALT 44 U/L (13-56) 08/09/24 10:35 Alkaline Phosphatase 108 U/L (45-117) 08/09/24 10:35 Home Medications: Ondansetron [Zofran] 4 mg PO Q6H PRN #12 tab 08/11/24 Pantoprazole [Protonix Tab] 40 mg PO DAILY #14 tab 08/11/24 New Medications: Pantoprazole [Protonix Tab] 40 mg PO DAILY #14 tab Ondansetron [Zofran] 4 mg PO Q6H PRN #12 tab PRN Reason: Nausea / Vomiting Physician Discharge Instructions: Patient with ongoing dental issues was admitted to the hospital for intractable nausea and vomiting along with hypokalemia. She was treated IV fluids, her potassium was replaced and her diet was slowly advanced. She is feeling much better at this time, she has appointment with her dentist at around 4 PM today. Prescriptions for Zofran, Protonix to be sent with patient, she should follow-up with her primary care doctor in 1 to 2 weeks Diet: Dixon Activity: Ad lissett Followup: Marv Reyes MD [Primary Care Provider] - 1-2 Weeks Time spent managing pt's care (in minutes): 42
[2024-08-11 12:23] VITALS: BP 128/81; TEMP 98
--- NOTE | 2024-08-11 12:43 | EKG ---
Test Date: 2024-08-09 Test Time: 10:57:29 Care Support Representative: AKBAR MEASUREMENT RESULTS: Intervals: Rate: 58 MA: 142 QRSD: 72 QT: 450 QTc: 441 [place]: P: 51 MA: 142 QRS: 74 T: 77 INTERPRETIVE STATEMENTS: Sinus bradycardia Otherwise normal ECG Compared to ECG 07/30/2024 06:55:29 Sinus rhythm no longer present Electronically Signed On 08-11-24 12:37:40 CDT by Zach Pinedo
== END 2024-08-11 13:26 | disposition home or self-care (01) | DRG 641 ==
LOC: ER 10:16 → ERHOLD 13:43 → 4TH 17:21 → OBSVTOIN 08-10 15:31
PROVIDERS: ADMIT Internal Medicine; ATTEND Hospitalist
DX: E87.6 Hypokalemia (principal); E87.1 Hypo-osmolality and hyponatremia; K04.7 Periapical abscess without sinus; F41.9 Anxiety disorder, unspecified; F32.A Depression, unspecified; F90.9 Attention-deficit hyperactivity disorder, unspecified type; Z88.8 Allergy status to other drugs, medicaments and biological substances; Z91.09 Other allergy status, other than to drugs and biological substances
CPT/HCPCS: 36415; 70491; 71260; 74160; 80048; 80053; 83735; 84100; 84439; 84443; 84484; 85025; 93005; 96365; 96366; 96367; 96375; 99285; G0378; J0295; J1200; J1650; J2270; J2405; J2470; J2765; J3010; J3480; J7030; J7040; J7799; Q9967